=== PATIENT | male | born 1945 | race Hispanic/Latino ===

== ENCOUNTER → 2018-02-28 | Outpatient (CLI) | payer OTHER | END | disposition home or self-care (01) | LOC: RAH 11:24 | PROVIDERS: ATTEND Family Medicine | DX: M47.892 Other spondylosis, cervical region (principal) | CPT/HCPCS: 72040 ==

== ENCOUNTER → 2019-03-05 | Outpatient (CLI) | payer OTHER ==
[2019-03-05 14:35] LABS: CREATININE 1.1 mg/dL (0.5-1.5)
== END | disposition home or self-care (01) ==
LOC: LAB 13:44
PROVIDERS: ATTEND Otolaryngology Plastic Surgery within the Head & Neck
DX: H90.3 Sensorineural hearing loss, bilateral (principal)
CPT/HCPCS: 36415; 82565; 84520

== ENCOUNTER → 2019-03-06 | Outpatient (CLI) | payer OTHER ==
[~2019-03-06] MED LIST: GADODIAMIDE 10 MMOL/20 ML VIAL IV ONE
== END | disposition home or self-care (01) ==
LOC: RAH 07:46
PROVIDERS: ATTEND Otolaryngology Plastic Surgery within the Head & Neck
DX: H90.3 Sensorineural hearing loss, bilateral (principal)
CPT/HCPCS: 70553 ×2; A9579

== ENCOUNTER 2024-05-30 08:36 | Day surgery (SDC) | payer OTHER ==
--- NOTE | 2024-05-29 11:11 | NUR ---
PATIENT CANCELLED DUE TO FORMED STOOL, PATIENT NOT CLEANED FOR COLONOSCOPY. NOTIFIED, [facility] NOTIFIED AND MAXIMO ELDERS. RESCHEDULE FOR TOMORROW AND REPREP.
[~2024-05-30] VITALS: Ht 165.1 cm; Wt 49.9 kg
[2024-05-30] VITALS (12 sets, daily range): BP systolic 83–109; BP diastolic 55–67; PULSE 58–64; RESP 12–17; TEMP 97–97.6
[~2024-05-30 08:36] MED LIST changes: +0.9%NACL 1000ML 0 ML IV ONE; -GADODIAMIDE 10 MMOL/20 ML VIAL IV ONE
[2024-05-30] MEDS ORDERED: 0.9%NACL 1000ML 1,000 ML IV ONE (11:20)
[2024-05-30] MEDS: 0.9%NACL 1000ML 1,000 ML IV ONE (11:46)
[2024-05-30] MEDS ORDERED: ONDA-104 GT (12:19)
[2024-05-30] MEDS ORDERED: FAMO20TA8 GT (12:19)
[2024-05-30] MEDS ORDERED: METO10TA41 GT (12:19)
[2024-05-30] MEDS ORDERED: MULT-1203 GT (12:19)
[2024-05-30] MEDS ORDERED: ASCO500T10 GT (12:19)
[2024-05-30] MEDS ORDERED: CALC667C10 GT (12:19)
[2024-05-30] MEDS ORDERED: FOLI0.8C GT (12:19)
[2024-05-30] MEDS ORDERED: ZINC GT (12:19)
[2024-05-30] MEDS ORDERED: MIDO5TAB4 GT (12:19)
[2024-05-30] MEDS ORDERED: ESOM40CA GT (12:19)
[2024-05-30] MEDS ORDERED: LEVO100C4 GT (12:19)
[2024-05-30] MEDS ORDERED: BISA-151 GT (12:19)
[2024-05-30] MEDS ORDERED: OXYC-38 GT (12:19)
[2024-05-30] MEDS ORDERED: THIA100T91 GT (12:19)
[2024-05-30] MEDS ORDERED: IBUP-2070 GT (12:19)
[2024-05-30] MEDS ORDERED: proPOFol 10 MG/ML 20ML VIAL IV ONE (13:13)
--- NOTE | 2024-05-30 14:28 | NUR ---
Full and complete Discharge Instructions given to Patient and Family both verbally and in writing.. All questions answered.Voiced understanding to GI procedure precautions and Follow Up. PIV removed with catheter tip intact. Denies c/o pain or discomfort. Called report in full to [facility] to Elvin Rubalcava. All questions answered. Reported off to Low CAZARES.
== END 2024-05-30 15:00 ==
LOC: DAH 08:36 → ENDO 08:36
PROVIDERS: ATTEND Internal Medicine Gastroenterology
DX: K52.9 Noninfective gastroenteritis and colitis, unspecified (principal); R63.30 Feeding difficulties, unspecified; R12 Heartburn; E78.5 Hyperlipidemia, unspecified; Z96.1 Presence of intraocular lens; Z99.3 Dependence on wheelchair; Z85.048 Personal history of other malignant neoplasm of rectum, rectosigmoid junction, and anus; Z87.19 Personal history of other diseases of the digestive system; Z79.899 Other long term (current) drug therapy; Z86.0100 Personal history of colon polyps, unspecified
CPT/HCPCS: 45378; J7030 ×3; J2704; A4620; A4215; A4223; A7002; A4222; A4221; A4663; A4606; J3490